=== PATIENT | male | born 1930 | race Caucasian/White ===

== ENCOUNTER 2017-01-03 11:49 | Emergency (ER) | payer MEDICARE, OTHER | END 2017-01-03 15:49 | disposition home or self-care (01) | LOC: ER 11:49 | PROC: 0HQ1XZZ Repair Face Skin, External Approach (ICD-10-PCS; principal; 2017-01-03) | DX: S01.81XA Laceration without foreign body of other part of head, initial encounter (principal); I10 Essential (primary) hypertension; E11.9 Type 2 diabetes mellitus without complications; Z86.73 Personal history of transient ischemic attack (TIA), and cerebral infarction without residual deficits; W19.XXXA Unspecified fall, initial encounter | CPT/HCPCS: 70450; 70480; 90471; 90714; 99284; A9270-GY ==